=== PATIENT | male | born 1980 | race Caucasian/White ===

== ENCOUNTER 2021-12-24 21:42 | Emergency (ER) | payer SELFPAY ==
[~2021-12-24] VITALS: Ht 165.1 cm; Wt 91.0 kg
[2021-12-24 23:20] VITALS: BP 145/89
== END 2021-12-24 23:25 | disposition home or self-care (01) ==
LOC: ER 21:42
DX: R06.09 Other forms of dyspnea (principal)
CPT/HCPCS: 99283